=== PATIENT | male | born 1985 | race Caucasian/White ===

== ENCOUNTER 2024-12-05 17:10 | Emergency (ER) | payer BC, MEDICARE ==
[~2024-12-05] VITALS: Ht 175.3 cm; Wt 99.8 kg
[2024-12-05 17:56] VITALS: O2SAT 96
[2024-12-08] MEDS ORDERED: HYDROMORPHONE 1 MG/1 ML DISP.SYRIN IM ONE (16:00)
== END 2024-12-05 22:45 | disposition left against medical advice (07) ==
LOC: ER 17:10
DX: K62.5 Hemorrhage of anus and rectum (principal); Z53.21 Procedure and treatment not carried out due to patient leaving prior to being seen by health care provider
CPT/HCPCS: A4606; A4663

== ENCOUNTER 2024-12-08 12:50 | Emergency (ER) | payer BC, MEDICARE ==
[~2024-12-08] VITALS: Ht 175.3 cm; Wt 104.3 kg
[2024-12-08] MEDS ORDERED: IPRATROPIUM BROMIDE 0.5 MG/2.5 ML NEBU ONE (16:05)
[2024-12-08] MEDS ORDERED: ALBUTEROL SULFATE 2.5 MG/3 ML NEBU ONE (16:05)
[2024-12-08] MEDS: ALBUTEROL SULFATE 2.5 MG/3 ML NEBU NEB ONE (16:06)
[2024-12-08] MEDS: IPRATROPIUM BROMIDE 0.5 MG/2.5 ML NEBU NEB ONE (16:06)
[2024-12-08] MEDS: OXYCODONE/APAP 5-325 MG TABLET PO ONE (16:15)
[2024-12-08 16:17] LABS: BASOPHILS % (AUTO) 0.7 % (0.0-2.0); DIFFERENTIAL COMMENT 1; EOSINOPHILS # (AUTO) 0.2 K/uL (0.0-0.7); EOSINOPHILS % (AUTO) 3.5 % (0.0-7.0); HEMATOCRIT 32.6 % (36.7-47.1); HEMOGLOBIN 10.7 g/dL (12.5-16.3); LYMPHOCYTES # (AUTO) 0.7 K/uL (0.8-4.8); LYMPHOCYTES % (AUTO) 10.4 % (20.5-51.5); MEAN CORPUSCULAR HEMOGLOBIN 27.7 uug (23.8-33.4); MEAN CORPUSCULAR HGB CONC 33 g/dL (32.5-36.3); MONOCYTES % (AUTO) 15.2 % (0.0-11.0); NEUTROPHILS # (AUTO) 4.4 K/uL (1.8-8.9); NEUTROPHILS % (AUTO) 70.2 % (38.5-71.5); PLATELET COUNT (AUTO) 297 K/uL (152-348); RED BLOOD CELL COUNT(AUTO) 3.88 MIL/uL (4.06-5.63); RED CELL DISTRIBUTION WIDTH 17.7 % (12.1-16.2); WHITE BLOOD COUNT (AUTO) 6.3 K/uL (3.6-10.2)
[2024-12-08] MEDS ORDERED: HYDROMORPHONE 1 MG/1 ML DISP.SYRIN ONE (16:17)
[2024-12-08] MEDS ORDERED: predniSONE 50 MG TABLET ONE (16:17)
[2024-12-08] MEDS ORDERED: predniSONE 10 MG TABLET ONE (16:17)
[2024-12-08] MEDS ORDERED: HYDROMORPHONE 2 MG/1 ML DISP.SYRIN ONE ×2 (16:18→18:18)
[2024-12-08] MEDS: predniSONE 20 MG TABLET PO ONE (16:23)
[2024-12-08] MEDS: HYDROMORPHONE 1 MG/1 ML DISP.SYRIN IM ONE ×2 (16:24→18:20)
[2024-12-08 16:34] LABS: ALBUMIN 3.4 g/dL (3.4-5.0); BILIRUBIN,DIRECT 0.1 mg/dL (0.0-0.2); BILIRUBIN,TOTAL 0.2 mg/dL (0.2-1.0); CALCIUM 8.2 mg/dL (8.5-10.1); POTASSIUM 4.2 mmol/L (3.5-5.1); TOTAL PROTEIN, SERUM 6.8 g/dL (6.4-8.2)
[2024-12-08 16:55] LABS: BASOPHILS % (MANUAL) 1 % (0-2); EOSINOPHILS % (MANUAL) 4 % (0-8); LYMPHOCYTES % (MANUAL) 10 % (20-40); MONOCYTES % (MANUAL) 15 % (2-10); NEUTROPHILS % (MANUAL) 70 % (42-75)
[2024-12-08 17:10] VITALS: O2SAT 99
[2024-12-08] MEDS ORDERED: FLUT12AE5 INH (18:08)
[2024-12-08] MEDS ORDERED: HYDR-3980 PO (18:08)
[2024-12-08] MEDS ORDERED: PRED50TA PO (18:08)
[2024-12-08 18:30] VITALS: BP 133/74; TEMP 98; O2SAT 100
== END 2024-12-08 18:40 | disposition home or self-care (01) ==
LOC: ER 12:50
DX: J98.01 Acute bronchospasm (principal); D64.9 Anemia, unspecified; I11.9 Hypertensive heart disease without heart failure; J44.89 Other specified chronic obstructive pulmonary disease; Z88.2 Allergy status to sulfonamides; Z88.5 Allergy status to narcotic agent
CPT/HCPCS: 99285; 71045; 87804 ×2; 80076; 80048; 85025; 85379; 36415; 93005; 96372 ×2; 87205; 85007; J1171 ×3; J7512 ×2; 70030-TC; A4606; A4663; J3590